=== PATIENT | female | born 1970 | race Two or more races ===

== ENCOUNTER → 2023-06-30 | Outpatient (CLI) | payer OTHER | END | disposition home or self-care (01) | LOC: XYW 06-20 15:37 | PROVIDERS: ATTEND Student in an Organized Health Care Education/Training Program | DX: I51.89 Other ill-defined heart diseases (principal); R00.2 Palpitations; R06.09 Other forms of dyspnea | CPT/HCPCS: 93306 ==

== ENCOUNTER → 2023-07-13 | Outpatient (CLI) | payer OTHER ==
[~2023-07-13] VITALS: Ht 182.9 cm; Wt 106.1 kg
[~2023-07-13] MED LIST: ATROPINE SULF 0.5 MG/5ML SYR ONE; DOBUTamine 1000MCG/ML 250 ML IV ONE
[2023-07-13 11:41] VITALS: BP 140/85; PULSE 80; RESP 15
== END | disposition home or self-care (01) ==
LOC: XYW 09:52
PROVIDERS: ATTEND Student in an Organized Health Care Education/Training Program
DX: R00.2 Palpitations (principal); R06.09 Other forms of dyspnea; R06.02 Shortness of breath; E11.65 Type 2 diabetes mellitus with hyperglycemia; E78.5 Hyperlipidemia, unspecified; E66.09 Other obesity due to excess calories; Z79.1 Long term (current) use of non-steroidal anti-inflammatories (NSAID); Z68.31 Body mass index [BMI] 31.0-31.9, adult
CPT/HCPCS: 93017; 93350; J1250; J0461

== ENCOUNTER → 2023-11-01 | Outpatient (CLI) | payer OTHER ==
[2023-11-01 07:12] LABS: Basophils # (auto) 0 10 ^3/uL (0-0.2); Basophils % (auto) 0.5 % (0.0-2.0); Eosinophils # (auto) 0.1 10 ^3/uL (0-0.8); Eosinophils % (auto) 1.1 % (0.0-7.0); Hematocrit 39.5 % (36.0-46.0); Hemoglobin 13.2 g/dL (12.2-16.2); Lymphocytes # (auto) 1.5 10 ^3/uL (0.4-5.4); Lymphocytes % (auto) 26.4 % (10.0-50.0); Mean Corpuscular Hemoglobin 28.1 pg (28.0-32.0); Mean Corpuscular Hgb Conc. 33.5 g/dL (32.0-36.0); Monocytes # (auto) 0.3 10 ^3/uL (0-1.3); Monocytes % (auto) 5.8 % (0.0-12.0); Neutrophils # (auto) 3.8 10 ^3/uL (1.6-8.6); Neutrophils % (auto) 66.2 % (37.0-80.0); Nucleated Red Blood Cells % 0.2 %; Red Cell Distribution Width 14.4 % (11.8-14.3); White Blood Cell 5.8 10^3/uL (4.4-10.8)
[2023-11-01 07:29] LABS: Urine Bacteria FEW /hpf (None Seen); Urine Blood Negative /uL (Negative); Urine Clarity Clear (Clear); Urine Color Colorless (Yellow); Urine Protein, UAD Negative (Negative); Urine Specific Gravity 1.008 (1.001-1.035); Urine Urobilinogen Normal (Negative); Urine WBC 2 /hpf (0 - 5); Urine pH 6.5 (5.0-8.0)
[2023-11-01 07:52] LABS: Folate (Folic Acid) > 24.00 ng/mL (>5.38)
[2023-11-01 07:53] LABS: Alanine Aminotransferase 23 U/L (7-40); Alkaline Phosphatase 75 U/L (46-116); Anion Gap 6 (5-15); BUN/Creatinine Ratio 9.4 (10.0-20.0); Blood Urea Nitrogen 8 mg/dL (9-23); Calcium 9.9 mg/dL (8.5-10.1); Carbon Dioxide 29 mmol/L (20-30); Chloride 104 mmol/L (98-107); Glucose 91 mg/dL (74-106); LDL Cholesterol 97 mg/dL (< 100); Potassium 4.6 mmol/L (3.5-5.1); Sodium 139 mmol/L (136-145); Triglycerides 71 mg/dL (< 150)
[2023-11-01 07:54] LABS: Albumin 4.6 g/dL (3.2-4.8); Aspartate Aminotransferase 28 U/L (13-40); Bilirubin, Total 0.7 mg/dL (0.2-1.0); Cholesterol 171 mg/dL (< 200); HDL Cholesterol 67 mg/dL (40-59); Total Protein 6.8 g/dL (5.7-8.2)
[2023-11-01 08:00] LABS: CRP High Sensitivity 1.04 mg/dL (<1.0)
[2023-11-01 08:49] LABS: Micro Albumin < 3.0 mg/L (<30.0)
[2023-11-01 08:56] LABS: Uric Acid 7.7 mg/dL (3.1-7.8)
[2023-11-01 08:58] LABS: Magnesium 1.7 mg/dL (1.6-2.6)
[2023-11-01 09:30] LABS: Erythrocyte Sedimentation Rate 15 mm/hr (0-20)
[2023-11-03 14:06] LABS: QuantiFERON-TB Gold Plus Negative (Negative)
== END | disposition home or self-care (01) ==
LOC: LAB 06:31
PROVIDERS: ATTEND Internal Medicine
DX: E61.2 Magnesium deficiency (principal); R79.89 Other specified abnormal findings of blood chemistry; R68.89 Other general symptoms and signs; E78.41 Elevated Lipoprotein(a); R94.6 Abnormal results of thyroid function studies; E79.0 Hyperuricemia without signs of inflammatory arthritis and tophaceous disease; R82.991 Hypocitraturia; E55.9 Vitamin D deficiency, unspecified; R82.90 Unspecified abnormal findings in urine; R82.79 Other abnormal findings on microbiological examination of urine; D51.9 Vitamin B12 deficiency anemia, unspecified
CPT/HCPCS: 36415; 80053; 80061; 81001; 82043; 82306; 82570; 82607; 82746; 83036; 83735; 84443; 84550; 85025; 85652; 86141; 87086

== ENCOUNTER → 2024-10-15 | Outpatient (CLI) | payer OTHER ==
[2024-10-15 07:25] LABS: Basophils # (auto) 0 10 ^3/uL (0-0.2); Basophils % (auto) 0.5 % (0.0-2.0); Eosinophils # (auto) 0.1 10 ^3/uL (0-0.8); Eosinophils % (auto) 0.9 % (0.0-7.0); Hematocrit 39.1 % (36.0-46.0); Hemoglobin 13.2 g/dL (12.2-16.2); Lymphocytes # (auto) 1.7 10 ^3/uL (0.4-5.4); Lymphocytes % (auto) 26.7 % (10.0-50.0); Mean Corpuscular Hemoglobin 28.5 pg (28.0-32.0); Mean Corpuscular Hgb Conc. 33.8 g/dL (32.0-36.0); Mean Corpuscular Volume 84.3 fL (80.0-100.0); Monocytes # (auto) 0.3 10 ^3/uL (0-1.3); Monocytes % (auto) 5.1 % (0.0-12.0); Neutrophils # (auto) 4.3 10 ^3/uL (1.6-8.6); Neutrophils % (auto) 66.8 % (37.0-80.0); Nucleated Red Blood Cells % 0.1 %; Platelet Count (auto) 219 10^3/uL (140-450); Red Blood Cells 4.64 10^6/uL (4.0-5.20); Red Cell Distribution Width 14.3 % (11.8-14.3); White Blood Cell 6.5 10^3/uL (4.4-10.8)
[2024-10-15 07:33] LABS: Urine Bacteria FEW /hpf (None Seen); Urine Blood Negative /uL (Negative); Urine Clarity Clear (Clear); Urine Color Light-Yellow (Yellow); Urine Protein, UAD Negative (Negative); Urine Specific Gravity 1.012 (1.001-1.035); Urine Squamous Epithelial Cell FEW /hpf (<5); Urine Urobilinogen Normal (Negative); Urine WBC 9 /HPF (0-5); Urine pH 5.5 (5.0-9.0)
[2024-10-15 07:52] LABS: Alanine Aminotransferase 24 U/L (7-40); Albumin 4.8 g/dL (3.2-4.8); Alkaline Phosphatase 90 U/L (46-116); Anion Gap 9 (5-15); Aspartate Aminotransferase 24 U/L (13-40); BUN/Creatinine Ratio 9.2 (10.0-20.0); Blood Urea Nitrogen 9 mg/dL (9-23); Calcium 10.2 mg/dL (8.7-10.4); Carbon Dioxide 28 mmol/L (20-31); Chloride 101 mmol/L (98-107); Cholesterol 182 mg/dL (< 200); Glucose 130 mg/dL (74-106); HDL Cholesterol 57 mg/dL (40-59); LDL Cholesterol 124 mg/dL (< 100); Magnesium 1.9 mg/dL (1.6-2.6); Potassium 4.3 mmol/L (3.5-5.1); Sodium 138 mmol/L (136-145); Triglycerides 77 mg/dL (< 150)
[2024-10-15 07:53] LABS: Bilirubin, Total 0.6 mg/dL (0.2-1.0); Total Protein 7.3 g/dL (5.7-8.2)
[2024-10-15 08:54] LABS: Uric Acid 8.3 mg/dL (3.1-7.8)
[2024-10-15 11:07] LABS: Folate (Folic Acid) 30.1 ng/mL (>5.38)
== END | disposition home or self-care (01) ==
LOC: LAB 06:42
PROVIDERS: ATTEND Internal Medicine
DX: E11.9 Type 2 diabetes mellitus without complications (principal); K21.9 Gastro-esophageal reflux disease without esophagitis; E78.5 Hyperlipidemia, unspecified; Z68.34 Body mass index [BMI] 34.0-34.9, adult
CPT/HCPCS: 36415; 80053; 80061; 81001; 82306; 82607; 82746; 83036; 83735; 84443; 84550; 85025; 87086